=== PATIENT | female | born 1940 | race Caucasian/White ===

== ENCOUNTER → 2021-06-04 | Outpatient (CLI) | payer MEDICARE ==
[2015-10-17 17:00] VITALS: BP 184/119
[~2021-06-04] MED LIST: AMIT75TA PO; ATEN50TA PO; ATOR20TA58 PO; GLIM2TAB7 PO; LORA1TAB PO; MECL-75 PO; METF500T16 PO
--- NOTE | 2021-06-08 15:53 | KCIC ---
Bilateral digital screening mammograms: Reason for examination: Routine screening. No previous exams available for comparison. New baseline. Interpretation was made with the benefit of CAD. The skin and nipples show no abnormalities. No abnormal axillary lymph nodes are seen. The breast par enchyma shows scattered fibroglandular density. (Breast density: Category B.) There is a nodular asym metry which is located at approximately the 11:30 C position of the right breast. Recommend further e valuation with coned compression views and ultrasound. There are also clusters of calcifications pres ent at the 12:00 position 12 cm posterior to the nipple and at the 2:00 C position approximately 14 c m posterior to this. Further evaluation with coned compression magnification views is recommended. Th ere are no other dominant masses, suspicious calcifications or architectural distortions. Some benign appearing calcifications are present. Impression: Parenchymal asymmetry at the 12:00 position of the right breast posteriorly. Recommend further evalua tion with coned compression views and ultrasound. Calcification seen in the 12:00 and 2:00 positions of the left breast. Recommend further evaluation w ith coned compression patient views in CC and true lateral projections BI-RADS category 0: Incomplete. Needs additional imaging evaluation "Our facility is accredited by the [employer] Mammography [employer]." This patient's information has been entered into a reminder system for the patient to be notified wit h the results of her examination and a target date for the next mammogram. Electronically signed by: Mel Chen MD (06/08/2021 3:51 PM) [id number]
== END ==
LOC: KCIC MAMMO 13:31
PROVIDERS: ATTEND Family Medicine
DX: Z12.31 Encounter for screening mammogram for malignant neoplasm of breast (principal)
CPT/HCPCS: 77063; 77067

== ENCOUNTER → 2021-06-24 | Outpatient (CLI) | payer MEDICARE ==
[2015-10-17 17:00] VITALS: BP 184/119
--- NOTE | 2021-06-24 14:41 | RAD ---
EXAMINATION: MG DIAGNOSTIC BILAT, US BREAST RT History: Recalled from screening mammogram for left breast calcifications and right breast asymmetry Comparison: 06/04/2021. Technique: Spot compression CC and MLO views of the right breast were obtained. Spot magnification CC , MLO, and ML views of the left breast and full-field ML view of the left breast was obtained. Subseq uent right breast ultrasound was performed in the area of concern. Findings: Breast Tissue Density B : There are scattered areas of fibroglandular density. The asymmetry in the upper right breast persists on spot compression. The calcifications in the left breast at 12:00 and 2:00 have a coarse heterogeneous morphology. Ultrasound of the right breast from 10:00 o'clock was performed. There is no sonographic abnormality to correspond with the focal asymmetry on mammogram. Normal lymph nodes in the right axilla. IMPRESSION: 1. Suspicious left breast calcifications at 12:00 and 2:00, posterior depth. Recommend stereotactic g uided biopsy of both groups of calcifications in the left breast. 2. The upper right breast asymmetry persists on spot compression but there is no sonographic correlat ion. Recommend 6 month follow-up right breast mammogram and possible ultrasound to ensure stability. BI-RADS Category 4: Suspicious. A message with results and recommendations regarding biopsy were left for Dr. Danielle' nurse at 2:40 PM on 06/24/2021. Electronically signed by: Nallely Lynn MD (06/24/2021 2:39 PM) [id number]
== END ==
LOC: MAMMO 12:48
PROVIDERS: ATTEND Family Medicine
DX: R92.8 Other abnormal and inconclusive findings on diagnostic imaging of breast (principal)
CPT/HCPCS: 76641; 77066

== ENCOUNTER → 2021-08-25 | Outpatient (CLI) | payer MEDICARE ==
[2015-10-17 17:00] VITALS: BP 184/119
[~2021-08-25] MED LIST changes: +LIDOCAINE 1% Multi-Dose 20 ML VIAL. INJ ONE; +LIDOCAINE 2%/EPI 1:100,000 20 ML VIAL. INJ ONE
--- NOTE | 2021-08-25 11:23 | RAD ---
EXAM: Stereotactic left breast biopsy; specimen radiograph; post-biopsy clip placement; unilateral po st-biopsy mammogram. HISTORY: 81-year-old female presents for stereotactic guided biopsy of clustered microcalcifications within the posterior left breast at the 12:00 and 2:00 positions demonstrate on a diagnostic mammogra m performed 06/24/2021. TECHNIQUE AND FINDINGS: The procedure and its risks and benefits were discussed with the patient. Ris ks discussed included, but were not limited to, pain, infection, bleeding and need for repeat biopsy. The patient provided verbal and written consent. A timeout was performed. The patient was positioned within the stereotactic unit with the left breast in lateral medial compre ssion. Images were obtained and the calcifications of concern at the 12:00 position were localized us ing stereotaxis. The skin overlying this region was then sterilely prepped and infiltrated with a few cc 1% lidocaine for local anesthesia. Deeper soft tissue anesthesia was administered with epinephrin e in 1% lidocaine. A small skin incision was made and the biopsy device was advanced and appropriate positioning was confirmed with additional images. Subsequently, multiple core biopsy samples were obtained with vacuum assistance. A plain radiograph o f the specimen was obtained, demonstrating inclusion of a few calcifications of interest. Then, a pos t-biospy clip was advanced to the site of biopsy using the same guidance technique. A sterile bandag e was placed. Using the same technique, the calcifications at the 2:00 position right identified using stereotaxis. The skin overlying this region was then sterilely prepped and infiltrated with a few cc 1 percent li docaine for local anesthesia. Deeper soft tissue anesthesia was administered with epinephrine in 1 pe rcent lidocaine. A small skin incision was made in a biopsy device was advanced and appropriate posit ion was confirmed with additional images. Subsequently, multiple core biopsy samples were obtained with vacuum assistance. A plain radiograph o f the specimen was obtained, demonstrating inclusion of the calcifications of interest. Then, a post- biospy clip was advanced to the site of biopsy using the same guidance technique. A sterile bandage was placed. The post-biopsy mammogram demonstrates immediate post-biospy changes. The biopsy clip at the 2:00 pos ition is in expected position. The biopsy clip corresponding with a biopsy of calcifications at the 1 2:00 position is approximately 1.4 cm lateral and 0.8 cm superior to residual calcifications. The pat ient tolerated the procedure without difficulty and was discharged to home in stable condition with p ost-biospy care instructions. IMPRESSION: 1. Stereotactic biopsy of clustered microcalcifications at the 12:00 and 2:00 positions of the left b reast. 2. An addendum to this report will be submitted when pathology results are available Electronically signed by: Emily Salas MD (08/25/2021 11:21 AM) [id number]
--- NOTE | 2021-08-26 17:07 | PATHOLOGY ---
[facility] Accession Number: [id number] . 01 Material submitted: . PART A: breast - LEFT BREAST TISSUE. Modifiers: left PART B: breast - LEFT BREAST TISSUE. Modifiers: left . 01 Clinical history: . FOR A- 12:00 POSITION FOR B- 2:00 POSITION BREAST CALCIFICATIONS . 02 Diagnosis: A. Breast tissue, left breast 12:00 stereotactic biopsies: - Ancient fibroadenoma with associated calcifications. . B. Breast tissue, left breast 2:00 stereotactic biopsies: - Ancient fibroadenoma with associated calcifications. LBQ 08/26/2021 1612 Local . 02 Comment: Sections of the left breast stereotactic biopsies at 12:00 and 2:00 appear similar and reveal fatty breast tissue, each containing a small ancient fibroadenoma with associated calcifications. These fibroadenomas range from 2 up to 4 mm in greatest dimension. There is no atypia or evidence of malignancy. (JPM/db; 08/26/2021) . 02 Electronically signed: . Varun Alonzo MD, Pathologist NPI- [id number] . 01 Gross description: . A. The specimen is received in formalin, labeled "Yadira Ayoub, 12:00 breast tissue". Received is a cassette with multiple needle cores of bright yellow, fibrofatty tissue measuring 2.5 x 2.4 x 0.3 cm in aggregate dimensions. The specimen is transferred to cassette A1. Also received within the specimen container are multiple minute fragments of bright yellow, fibrofatty tissue measuring 1.8 x 0.3 x 0.1 cm in aggregate dimension. The specimen is filtered and entirely submitted in cassette A2. The specimen is removed at 0945 and placed into formalin at 0950 on 08/25/2021. The specimen is removed from formalin at 0940 on 08/25/2021. The total formalin fixation time is 11 hours and 50 minutes. . B. The specimen is received in formalin, labeled "Yadira Ayoub, 2:00 breast tissue". Received is a cassette with multiple needle cores of bright yellow, fibrofatty tissue measuring 2.5 x 2.3 x 0.3 cm in aggregate dimensions. The specimen is transferred to cassette A1. Also received within the specimen container are multiple minute fragments of bright yellow, fibrofatty tissue measuring 1.5 x 0.5 x 0.1 cm in aggregate dimensions. The specimen is filtered and entirely submitted in cassette B2. The specimen is removed at 1010 and placed into formalin at 1025 on 08/25/2021. The specimen is removed from formalin at 0940 on 08/25/2021. the total formalin fixation time is 11 hours and 15 minutes. ([facility]; 08/25/2021) NRI/NRI 08/25/2021 1822 Local . 02 Pathologist provided ICD-10: D24.2 . 02 CPT . 248733, [id number] Specimen Comment: A courtesy copy of this report has been sent to [phone], [phone] Specimen Comment: [id number], Specimen Comment: Report sent to , DR GONZALEZ / DR GARBER Specimen Comment: A duplicate report has been generated due to demographic updates. Performed at: 01 [facility] [address], [place] [id number] MD Higinio Esquivel MD Phone: [phone] Performed at: 02 [facility] [address] [place], [place] [id number] MD Varun Alonzo MD Phone: [phone]
== END | disposition home or self-care (01) ==
LOC: MAMMO 08:07
PROVIDERS: ATTEND Surgery
DX: R92.8 Other abnormal and inconclusive findings on diagnostic imaging of breast (principal); R92.1 Mammographic calcification found on diagnostic imaging of breast; D24.2 Benign neoplasm of left breast; Z79.899 Other long term (current) drug therapy; Z72.89 Other problems related to lifestyle; Z88.2 Allergy status to sulfonamides
CPT/HCPCS: 19081; 19082; 77065; J3490; 88305